=== PATIENT | male | born 1975 | race Caucasian/White ===

== ENCOUNTER 2019-08-28 00:06 | Outpatient (CLI) | payer OTHER, SELFPAY ==
[2019-08-28 18:06] LABS: SARS-CoV-2 RNA PCR Negative
== END 2019-08-28 00:07 | disposition home or self-care (01) ==
LOC: ANHCOVIDDT 00:06
PROVIDERS: PCP Nurse Practitioner Adult Health; Visit Provider Internal Medicine Gastroenterology
DX: Z01.812 Encounter for preprocedural laboratory examination (principal); Z20.828 Contact with and (suspected) exposure to other viral communicable diseases
CPT/HCPCS: 87635; C9803; U0003

== ENCOUNTER 2019-08-30 00:08 | Day surgery (SDC) | payer OTHER, SELFPAY ==
[2019-08-22 10:55] VITALS: BMI 38.7
[2019-08-30 07:08] VITALS: BP 136/75; PULSE 80; RESP 18; TEMP 37.1; O2SAT 100
[2019-08-30] MEDS: LACTATED RINGERS 1,000 ML 150 ML IV CONT (07:11)
--- NOTE | 2019-08-30 07:21 | P.PNAN_ITS ---
Anes - Initial Pre Proc Eval Procedure: Operation Date: 08/30/19 08:30 Proposed Procedures p Colonoscopy - Guille Gonzales MD Date/Time: 08/30/19 07:21 Surgeon: Guille Gonzales MD Pre Op Diagnosis: diverticulitis Patient Data Age: 43 Gender: M Height: 1.73 m Weight: 118.8 kg Last Vital Signs Temp 37.1 C 08/30/19 07:08 Pulse 80 08/30/19 07:08 Resp 18 08/30/19 07:08 BP 136/75 08/30/19 07:08 Pulse Ox 100 08/30/19 07:08 Allergies Allergy/AdvReac Type Severity Reaction Status Date / Time No Known Allergies Allergy Verified 08/22/19 10:54 Home Medications Medication Instructions Recorded Confirmed Type No Home Medications 08/22/19 08/22/19 History Patient hx anesthesia problems: none Family hx anesthesia problems: none [facility] Past Medical History Medical History (Updated 08/30/19 @ 07:21 by Samir Pereira DO) Anxiety Hyperlipidemia Hypertension KENYA (obstructive sleep apnea) Social History Social History (Updated 08/30/19 @ 07:21 by Samir Pereira DO) Alcohol intake: current Alcohol use details: Heavy on weekends Anes - Eval Final PreProcedure Day of Procedure 08/30/19 07:21 Patient weight: obese Heart: regular rate and rhythm Lungs: clear to auscultation and normal air movement Airway: Mallampati scale class II Neurological: alert and oriented Last oral intake: >/= 8 hours ASA classification: III Emergent: no Anesthetic plan: proceed Anesthesia type and monitoring: general GIVS and standard monitoring Informed Consent: The patient's anesthetic plan and its attendant risks and benefits were discussed with the patient/family/POA. Questions were solicited and answers provided to the satisfaction of the patient/family/POA.
--- NOTE | 2019-08-30 07:25 | PM.HPGS ---
History of Present Illness History of Present Illness Consent: Risks, benefits, and alternatives have been discussed and questions answered. Patient agrees to proceed with procedure. Chief complaint: diverticulitis Narrative: Seymour Colvin Jr. is a 43 year old W male Referred for colonoscopy for evaluation of lower abdominal pain. Patient's 1st episode was 1/2 years ago which responded to antibiotic therapy. Patient other episodes 6 weeks ago his had was 10 on a scale of 1-10. Patient again responded antibiotic therapy. He did have a CAT scan another institution I do not have the results but questionable diverticulitis. No family history of inflammatory bowel disease colon polyps or colon cancer. Patient did have some loose stools yellowish in color no blood in the stools. No fever chills or sweats. No recent travel. Patient has a questionable history of sleep apnea. He is on no medications no known allergies. Does smokes 7 cigarettes a day. [facility] Past Medical History Medical History Anxiety Hyperlipidemia Hypertension KENYA (obstructive sleep apnea) Social History Social History Alcohol intake: current Alcohol use details: Heavy on weekends Meds Home Medications and Allergies Home Medications Medication Instructions Recorded Confirmed Type No Home Medications 08/22/19 08/22/19 History Allergies Allergy/AdvReac Type Severity Reaction Status Date / Time No Known Allergies Allergy Verified 08/22/19 10:54 Vital Signs Vital Signs - 24 hr 08/30/19 07:08 Temperature 37.1 C Pulse Rate 80 Respiratory Rate 18 Blood Pressure 136/75 Pulse Oximetry 100 Exam Const: Orientation/consciousness: patient oriented x3 Resp: Auscultation: clear to auscultation bilaterally Cardio: Rate: regular rate Rhythm: regular rhythm Heart sounds: no murmurs GI: GI Palp: Yes Soft to palpation, No Tenderness to palpation present (GI), Yes No hepatosplenomegaly present and No Palpable mass present Auscultation: normal bowel sounds Neuro: General: patient oriented x3 and no focal motor deficits Extrem: General: no pedal edema Assessment and Plan Additional Plan Colonoscopy for evaluation of a lower abdominal pain and questionable diverticulitis
[2019-08-30 09:01] VITALS: BP 131/79; PULSE 80; RESP 13; O2SAT 98
[2019-08-30 09:11] VITALS: BP 124/82; PULSE 80; RESP 19; O2SAT 97
[2019-08-30 09:21] VITALS: BP 130/77; PULSE 73; RESP 16; O2SAT 98
== END 2019-08-30 09:43 | disposition home or self-care (01) ==
PROVIDERS: PCP Nurse Practitioner Adult Health; Visit Provider Internal Medicine Gastroenterology
PROC: 0DJD8ZZ Inspection of Lower Intestinal Tract, Via Natural or Artificial Opening Endoscopic (ICD-10-PCS; CPT 45378; principal; 2019-08-30 08:30)
DX: D12.3 Benign neoplasm of transverse colon (principal); K62.1 Rectal polyp; K64.4 Residual hemorrhoidal skin tags; K57.30 Diverticulosis of large intestine without perforation or abscess without bleeding; I10 Essential (primary) hypertension; E78.5 Hyperlipidemia, unspecified; G47.33 Obstructive sleep apnea (adult) (pediatric); F41.9 Anxiety disorder, unspecified; E66.9 Obesity, unspecified; Z68.39 Body mass index [BMI] 39.0-39.9, adult
CPT/HCPCS: 45380; 88305; J2704; J7120

== ENCOUNTER 2021-02-10 10:23 | Inpatient (IN) | payer BC, SELFPAY ==
[2021-02-10] VITALS (21 sets, daily range): BP systolic 152–173; BP diastolic 75–100; PULSE 76–122; RESP 14–26; TEMP 36.1–37.9; O2SAT 92–98; BMI 40.5
--- NOTE | ~2021-02-10 | US_ITS ---
EXAMINATION: US abdomen limited EXAM DATE: 02/10/2021 17:34 INDICATION: Pancreatitis. TECHNIQUE: Multiple grayscale and Doppler images of the abdomen right upper quadrant were obtained (b y a technologist who performed the scan) and subsequently reviewed. Correlation is made to 02/10/2021 . FINDINGS: Pancreas is difficult to visualize through the bowel gas. Please note that uncomplicated pancreatitis typically does not have any ultrasound findings. There is echogenic liver parenchyma, hepatic steat osis. There are no focal liver lesions identified. There is no evidence of intrahepatic biliary du ct dilation. Portal venous flow was seen in the hepatopedal, normal direction and has normal Doppler waveform. No right-sided hydronephrosis. Common bile duct measures 4 mm, which is normal. The gallbladder wall is normal in thickness, with ex pected amount of distention. No sonographic evidence of pericholecystic fluid. There is no cholelit hiases. Technologist performing exam reports patient did not demonstrate sonographic Roe's sign. Please note that this sign is less reliable in patients who have received pain medication. IMPRESSION: Hepatic steatosis. Reviewed, dictated and finalized at location A. SHELVER IMPRESSION: Hepatic steatosis.
--- NOTE | ~2021-02-10 | CT_ITS ---
EXAMINATION: CT abdomen pelvis w con DATE: 02/10/2021 12:47 INDICATION: Abdominal pain. Fever and leukocytosis. TECHNIQUE: Computed tomography (CT) of the abdomen and pelvis was performed with 100 mL Omnipaque 350 intravenous contrast. Automated exposure control and iterative reconstruction technique were employe d. The dose-length product was 1604.87 mGy-cm. COMPARISON: None. FINDINGS: The visualized portions of the lung bases demonstrate mild atelectasis. No pleural effusion . The heart size is normal. No pericardial effusion. The liver, gallbladder, and spleen are normal. T here is fat stranding around the head of the pancreas, consistent with acute interstitial pancreatiti s. The adrenal glands and kidneys are normal. There are no dilated loops of bowel. There is diverticu losis of the colon without evidence of diverticulitis. There is a small umbilical hernia containing n onobstructed small bowel. The appendix is normal. There is a small left inguinal hernia containing fa t. There is a mildly enlarged lymph node in the foramen of Alee, likely reactive. There is mild ch ronic anterior wedging of multiple thoracic vertebral bodies. There is moderate thoracic spondylosis and mild lumbar spondylosis. IMPRESSION: 1. Acute interstitial pancreatitis. 2. Small umbilical hernia containing nonobstructed small bowel. Reviewed, dictated and finalized at location A. EX [facility]READ [facility]ER
[2021-02-10 11:15] LABS: Add Urine Microscopic? NO; Appearance Urine Clear (Clear); Bilirubin Urine Negative (Negative); Blood Urine Negative (Negative); Color Urine Yellow (Yellow); Glucose Urine UA Negative (Negative); Ketones Urine Negative (Negative); Leukocyte Esterase Ur Negative LEU/UL (Negative); Nitrate Urine Negative (Negative); Protein Urine Negative (Negative); Specific Grav Ur 1.014 (1.001-1.035); Urobilinogen Urine Negative mg/dL (<2.0)
[2021-02-10 11:27] LABS: Basophils Absolute Auto 0.1 K/mm3 (0.0-0.1); Basophils Percent Auto 0.3 % (0.2-1.2); Eosinophils Absolute Auto 0.1 K/mm3 (0-0.3); Eosinophils Percent Auto 0.8 % (0-4.4); Hematocrit 47.5 % (42.0-52.0); Hemoglobin 16.1 g/dL (14.0-18.0); Immature Granulocyte Absolute 0.07 K/mm3 (0.00-0.031); Immature Granulocyte Percent A 0.4 % (0-0.5); Lymphocytes Absolute Auto 1.33 K/mm3 (0.9-3.2); Lymphocytes Percent Auto 7.6 % (18.3-44.2); Mean Corpuscular HGB Conc 33.9 g/dl (32-36); Mean Corpuscular Volume 91.3 fl (80-100); Mean Platelet Volume 9.9 fl (7.4-10.4); Monocytes Absolute Auto 1.6 K/mm3 (0.1-0.6); Monocytes Percent Auto 8.8 % (2.6-8.5); Neutrophils Absolute Auto 14.4 K/mm3 (1.3-6.7); Neutrophils Percent Auto 82.1 % (45.5-73.1); Platelet Count Result 320 k/mm3 (150-375); Red Cell Distribution Width 12.7 % (11.5-14.5); White Blood Count 17.6 K/mm3 (4.5-10.0)
[2021-02-10] MEDS: FAMOTIDINE 20 MG/2 ML VIAL IV PUSH (11:32)
[2021-02-10] MEDS: ONDANSETRON INJ 4 MG/2 ML VIAL IV PUSH (11:32)
[2021-02-10] MEDS: MORPHINE SULFATE (*CRX) 4 MG/ML INJ IV PUSH (11:32)
[2021-02-10] MEDS: SODIUM CHLORIDE 0.9% IV 1,000 ML 999 ML IV CONT (11:33)
[2021-02-10 11:39] LABS: Alanine Aminotransferase 22 U/L (4-50); Albumin Level 4.8 g/dL (3.5-5.1); Alkaline Phosphatase 71 U/L (38-126); Anion Gap 12 mmol/L (8-16); Aspartate Amino Transferase 22 U/L (17-59); Bilirubin,Total 1.1 mg/dL (0.2-1.3); Blood Urea Nitrogen 12 mg/dL (9-20); Calcium 10.1 mg/dL (8.4-10.2); Carbon Dioxide 25 mmol/L (22-30); Chloride 99 mmol/L (98-107); Estimated CRCL calculation 117 ml/min; Estimated Glomerular Filt Rate > 60; Glucose 102 mg/dL (65-110); Lipase 186 U/L (23-300); Potassium 3.8 mmol/L (3.4-5.0); Sodium 136 mmol/L (137-145)
--- NOTE | 2021-02-10 11:58 | ED.ABDPAIN ---
HPI - Abdominal Pain General Chief Complaint: Abdominal Pain <ALMAZ Otero Last Filed: 02/10/21 13:49> Stated Complaint: abd pain <ALMAZ Otero Last Filed: 02/10/21 13:49> Time Seen by Provider: 02/10/21 10:52 <ALMAZ Otero Last Filed: 02/10/21 13:49> Source: patient <ALMAZ Otero Last Filed: 02/10/21 13:49> Mode of arrival: ambulatory <ALMAZ Otero Last Filed: 02/10/21 13:49> Limitations: no limitations <ALMAZ Otero Last Filed: 02/10/21 13:49> History of Present Illness HPI narrative: This is a 45 year old male that presents to the ER for abdominal pain present over the last 4 days. Pain started in the left side of the abdomen, but is now diffuse. Reports the pain is consistently worsening. Associated with nausea and vomiting. His last bowel movement was yesterday. Reports it was black, although he has been taking pepto bismol for his discomfort. Patient noted to be febrile upon arrival to the ED. Denies chest pain, shortness of breath, or dysuria. <ALMAZ Otero Last Filed: 02/10/21 13:49> Related Data Home Medications: Home Medications Medication Instructions Recorded Confirmed No Home Medications 08/22/19 08/22/19 <ALMAZ Otero Last Filed: 02/10/21 13:49> Allergies/Adverse Reactions: Allergies Allergy/AdvReac Type Severity Reaction Status Date / Time No Known Allergies Allergy Verified 08/22/19 10:54 <ALMAZ Otero Last Filed: 02/10/21 13:49> Review of Systems Review of Systems: CONSTITUTIONAL: Denies fever CARDIOVASCULAR: Denies chest pain RESPIRATORY: Denies dyspnea. GASTROINTESTINAL: Reports abdominal pain, nausea, vomiting. Denies diarrhea. GENITOURINARY: Denies dysuria <ALMAZ Otero Last Filed: 02/10/21 13:49> All systems reviewed & are unremarkable except as noted in HPI and below <Juany Rodríguez PA-C - Last Filed: 02/10/21 13:49> PMFSH Past Medical History Medical History: Medical History (Updated 02/10/21 @ 16:55 by Eden Elaine NP) Anxiety Hyperlipidemia Hypertension KENYA (obstructive sleep apnea) The patient denies this but suspects that he may have obstructive sleep apnea <Juany Rodríguez PA-C - Last Filed: 02/10/21 13:49> Surgical History Surgical History: Surgical History (Updated 02/10/21 @ 16:55 by Eden Elaine NP) No pertinent past surgical history <Juany Rodríguez PA-C - Last Filed: 02/10/21 13:49> Family History Family History: Family History (Updated 02/10/21 @ 16:56 by Eden Elaine NP) Mother Heart disease Father Diabetes mellitus <Juany Rodríguez PA-C - Last Filed: 02/10/21 13:49> Social History Social History: Social History Social History: The patient is and lives with his . The is the durable power estate planning attorney for healthcare. 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 The patient states that he does not usually drink during the week but will drink heavily on the weekend. The patient states that he smokes about 2 packs of cigarettes in 1 week. He has 2 children. Code status full code Years smoked: 20 Smoking status: Current every day smoker Alcohol intake: current Drinks per week: 40 Alcohol use details: Heavy on weekends Substance use: never Spiritual care concerns: No <ALMAZ Otero Last Filed: 02/10/21 13:49> Exam Narrative: GENERAL: Uncomfortable, well-nourished, in no acute distress. HEAD: Normocephalic, atraumatic. EYES: EOMI. CHEST: Clear to auscultation. No respiratory distress. No wheezes rales or rhonchi HEART: Regular rate and rhythm. No murmur heard. Normal peripheral pulses. ABDOMEN: Soft, nondistended, normal active bowel sounds. Tender to palpation throughout the abdomen, without guarding EXTREMITIES: Normal range of motion. No
[2021-02-10 12:20] LABS: Lactic Acid Reflex 0.7 mmol/L (0.7-2.1)
[2021-02-10 12:23] LABS: Prothrombin Time 13.1 Seconds (11.1-14.7)
[2021-02-10 12:24] LABS: Partial Thromboplastin Time 33.5 SECONDS (22.3-36.8)
[2021-02-10 12:41] LABS: CRP 14.6 mg/dL (<1.0)
[2021-02-10] MEDS: SODIUM CHLORIDE 0.9% IV 1,000 ML 125 ML IV CONT ×2 (14:08→21:41)
[2021-02-10] MEDS: IBUPROFEN IV 800 MG/200 ML 800 MG/200 ML BAG 400 MG IVPB (14:09)
--- NOTE | 2021-02-10 15:43 | PC.NURSE ---
PT TRANSFERRED TO 3RD FLOOR WITH FLUIDS 125 NS
--- NOTE | 2021-02-10 16:13 | ADMGEN ---
This patient, Seymour Colvin Jr., was admitted to [facility] Surg Room 314-01. Patient/family oriented to hospital policies and general routines including ID bracelet, bed and alarms, visiting hours, pain management, procedures, bathroom and other care routines, personal items, smoking policy, room service/diet, and visiting hours. Information on how to activate the Rapid Response Team has been discussed. Patient/Family are encouraged to report perceived risks to care and to ask questions if they do not understand what they are told or what they should do.
--- NOTE | 2021-02-10 16:48 | PM.IMHP ---
H&P: HPI History of Present Illness Date/Time: 02/10/21 16:48 this is a 45-year-old male patient who started to have abdominal pain over the weekend but was only mild. The patient stated that he drink heavily over the weekend and could not quantify the amount of alcohol that he drinks this weekend. The patient stated that on Monday he was not feeling very well but he still continues to drink alcohol on the day. Over the next few days the patient continued to have increased abdominal pain. The patient stated that he just has not ate much of anything over the last couple days and that seemed to help. The patient stated that eating food made it worse so he stopped eating. The patient stated that he was able to keep some water down. He had no fever chills. The patient stated that he just felt like he was distended and bloated and needed to have bowel movement. The patient stated that he felt like he needed to take a laxative get that far. The patient stated that he has never had pancreatitis in the past and he still has a gallbladder. The patient has been taking Pepto-Bismol for the discomfort but it did seem to help much. He was given Motrin in the emergency room any stated that helped some. The patient was started on IV fluids, morphine, Pepcid, Zofran, ibuprofen, and Tylenol. The patient's abdominal pelvis CT was read as acute interstitial pancreatitis. Small umbilical hernia containing nonobstructed small bowel. White count was noted to be 17.6. Liver enzymes are within normal limits. However C reactive protein is 14.6. The patient stated that he does have high cholesterol but did not take the medication because it did make him feel very well. He has not had his cholesterol checked since then. The patient is being admitted for observation status on the date of service of 02/10/2021. Chief Complaint: Abdominal pain Review of Systems Review of Systems: All systems reviewed & are unremarkable except as noted in HPI and below Constitutional: Constitutional: Reports as per HPI and Reports no additional constitutional complaints Eyes: Eyes: Reports as per HPI and Reports no additional eye complaints ENT: Reports system reviewed and no additional complaints, except as documented and Reports Normal hearing present Cardiovascular: Cardiovascular: Reports no additional cardiovascular complaints Respiratory: Respiratory: Reports no additional respiratory complaints and Reports no additional respiratory complaints Gastrointestinal: Gastrointestinal: Reports as per HPI and Reports no additional gastrointestinal complaints Musculoskeletal: Musculoskeletal: Reports no additional musculoskeletal complaints Integumentary/Breasts: Skin/Breast: Reports system reviewed and no additional complaints, except as docu and Reports as per HPI Neurologic: Reports system reviewed and no additional complaints, except as documented, Reports as per HPI and Reports Normal hearing present Psychiatric: Psychiatric: Reports no additional psychiatric complaints and Reports as per HPI Endocrine: Endocrine: Reports no additional endocrine complaints Hematologic/Lymphatic: Hematologic/Lymphatic: Reports no additional hematologic/lymphatic complaints Allergic/Immunologic: Allergic/Immunologic: Reports no additional allergic/immunologic complaints [facility] Past Medical History Medical History (Updated 02/10/21 @ 17:07 by Eden Elaine NP) Anxiety Hyperlipidemia Hypertension KENYA (obstructive sleep apnea) The patient denies this but suspects that he may have obstructive sleep apnea Surgical History Surgical History (Updated 02/10/21 @ 16:55 by Eden Elaine NP) No pertinent past surgical history Family History Family History (Updated 02/10/21 @ 16:56 by Eden Elaine NP) Mother Heart disease Father Diabetes mellitus Social History Social History (Updated 02/10/21 @ 16:57 by Eden Elaine NP) Social History: The patient is
[2021-02-10] MEDS: HYDROmorphone HCL INJ (*CRX) 1 MG/ML SYR 0.5 MG IV PUSH ×2 (17:08→23:37)
[2021-02-10] MEDS: KETOROLAC 15 MG/ML VIAL (*BKC) IV PUSH (18:54)
[2021-02-10] MEDS: CLOBETASOL PROPIONATE 0.05% CREAM 30 GM 1 APPLIC TOPICAL (21:39)
[2021-02-11] MEDS: KETOROLAC 15 MG/ML VIAL (*BKC) IV PUSH ×2 (05:07→21:12)
[2021-02-11] MEDS: SODIUM CHLORIDE 0.9% IV 1,000 ML 125 ML IV CONT (05:10)
[2021-02-11 05:24] VITALS: BP 170/88; PULSE 110; RESP 18; TEMP 36.3; O2SAT 94
[2021-02-11 07:00] LABS: Basophils Percent Auto 0.3 % (0.2-1.2); Eosinophils Absolute Auto 0.3 K/mm3 (0-0.3); Eosinophils Percent Auto 1.8 % (0-4.4); Hematocrit 43.1 % (42.0-52.0); Hemoglobin 14.1 g/dL (14.0-18.0); Immature Granulocyte Absolute 0.07 K/mm3 (0.00-0.031); Immature Granulocyte Percent A 0.5 % (0-0.5); Lymphocytes Absolute Auto 1.32 K/mm3 (0.9-3.2); Lymphocytes Percent Auto 9.2 % (18.3-44.2); Mean Corpuscular HGB Conc 32.7 g/dl (32-36); Mean Corpuscular Hemoglobin 30.9 pg (26-34); Mean Corpuscular Volume 94.3 fl (80-100); Mean Platelet Volume 9.6 fl (7.4-10.4); Monocytes Absolute Auto 1.3 K/mm3 (0.1-0.6); Neutrophils Absolute Auto 11.3 K/mm3 (1.3-6.7); Neutrophils Percent Auto 79.2 % (45.5-73.1); Platelet Count Result 266 k/mm3 (150-375); Red Blood Count 4.57 M/mm3 (4.6-6.20); Red Cell Distribution Width 12.7 % (11.5-14.5); White Blood Count 14.3 K/mm3 (4.5-10.0)
[2021-02-11 07:06] LABS: Alanine Aminotransferase 18 U/L (4-50); Albumin Level 3.8 g/dL (3.5-5.1); Alkaline Phosphatase 60 U/L (38-126); Anion Gap 8 mmol/L (8-16); Aspartate Amino Transferase 20 U/L (17-59); Bilirubin,Total 1.1 mg/dL (0.2-1.3); Blood Urea Nitrogen 12 mg/dL (9-20); Calcium 8.8 mg/dL (8.4-10.2); Carbon Dioxide 25 mmol/L (22-30); Chloride 104 mmol/L (98-107); Cholesterol 221 mg/dL (0-200); Estimated CRCL calculation 131 ml/min; Estimated Glomerular Filt Rate > 60; Glucose 98 mg/dL (65-110); HDL Direct 35 mg/dL; Lactate Dehydrogenase 342 U/L (313-618); Lipase 137 U/L (23-300); Potassium 4.3 mmol/L (3.4-5.0); Sodium 137 mmol/L (137-145); Triglycerides 128 mg/dL (<150)
[2021-02-11 07:18] LABS: LDL Cholesterol Direct 163 mg/dL
[2021-02-11] MEDS: CLOBETASOL PROPIONATE 0.05% CREAM 30 GM 1 APPLIC TOPICAL ×2 (09:59→21:11)
[2021-02-11] MEDS: THIAMINE HCL 200 MG/2 ML VIAL 100 MG IV PUSH (09:59)
[2021-02-11] MEDS: FOLIC ACID 1 MG/0.2 ML INJ IV PUSH (10:50)
[2021-02-11 11:57] LABS: Add Urine Microscopic? NO; Appearance Urine Clear (Clear); Bilirubin Urine Negative (Negative); Blood Urine Negative (Negative); Color Urine Yellow (Yellow); Glucose Urine UA Negative (Negative); Ketones Urine Negative (Negative); Leukocyte Esterase Ur Negative LEU/UL (Negative); Nitrate Urine Negative (Negative); Protein Urine Negative (Negative); Specific Grav Ur 1.014 (1.001-1.035); Urobilinogen Urine Negative mg/dL (<2.0)
--- NOTE | 2021-02-11 13:06 | PM.IMPN ---
Progress Note: A&P Assessment and Plan (1) Acute pancreatitis: Qualifiers: Acute pancreatitis complication: no infection or necrosis Pancreatitis type: unspecified pancreatitis type Qualified Code(s): K85.90 - Acute pancreatitis without necrosis or infection, unspecified Code(s): K85.90 - Acute pancreatitis without necrosis or infection, unspecified Status: Acute Assessment and Plan: The patient is a heavy drinker on the weekends which could be the cause of his pancreatitis. Patient is on clear liquids and tolerating water without any issues. For lunch she is going to try to eat some broth and Jell-O and see how his abdominal pain feels. He has not received any pain meds since earlier this morning. Denies any nausea or symptoms. Will continue with some IV fluids at this time. If he tolerates clears then will potentially discontinue. PPI Q12hrs with admission Continue pain medications as needed. Abd US showed Hepatic steatosis. His lipase was in normal limits at the time of admission and repeat Lipase this morning was normal. Continue to monitor lipase. (2) Hypertension: Code(s): I10 - Essential (primary) hypertension Status: Chronic Assessment and Plan: Patient stated that he had been on medications at 1 time for his blood pressure and that has not been taking it. BP elevated this morning 170 systolic. Will continue monitoring. Discontinue IV fluids if tolerating Clear Liquid. If still elevated consider starting HTN medication. Do p.r.n. hydralazine. (3) Anxiety: Code(s): F41.9 - Anxiety disorder, unspecified Status: Chronic Assessment and Plan: P.r.n. Ativan. (4) Hyperlipidemia: Code(s): E78.5 - Hyperlipidemia, unspecified Status: Chronic Assessment and Plan: Check lipid profile. The patient stated that he had been on a statin at 1 time and was not able to tolerated. (5) Alcoholism: Code(s): F10.20 - Alcohol dependence, uncomplicated Status: Acute Assessment and Plan: Continue to monitor CIWA scores. P.r.n. Ativan. Folic acid and thiamin have been added as well. (6) Tobacco abuse: Code(s): Z72.0 - Tobacco use Status: Acute Assessment and Plan: The patient states that he smokes about 2 packs a 1 week. Additional Plan The patient suspects that he has sleep apnea so I did order an apnea link. -Apnea link showed AHI elevated at 8.2, RI 12.6, VERONA 14.1 and suspected pathological breathing disorder. Will need further evaluation and testing with PCP after discharge Time Spent With Patient Time with patient: 25 - 35 minutes Subjective Date/time seen: 02/11/21 13:06 Interval history: Date of Service 02/11/21: Patient reports feeling well right now. He has only been drinking water, and has not advanced his diet at all. He is going to try some broth and Jell-O for lunch and see how his stomach tolerates that. Otherwise he reports his urine being ?dark brown? in color. This is something that is new from arrival in he questioned if it was from the pain medications he had been receiving. He does report lower abdominal discomfort on bilateral sides. Denies any frequent urination, dysuria, flank pain, or any other symptoms at this time. He denies any chest pain, shortness of breath, cough, nausea, vomiting, leg swelling, calf pain, or any other symptoms at this time. Review of Systems Review of Systems: All systems reviewed & are unremarkable except as noted in HPI and below Exam Narrative: General: 45-year-old man sitting up in the chair talking on the phone. Appears comfortable. In no acute distress. Skin: No jaundice or cyanosis. Good skin turgor. Neck: Full range of motion. Supple. Respiratory: Lungs are clear to auscultation bilaterally. No bony chest wall tenderness. Cardiovascular: The heart has a regular rate and rhythm without murmur. Lower extremities: No lower e
[2021-02-11 14:00] VITALS: BP 155/88; PULSE 90; RESP 16; TEMP 36.6; O2SAT 97
[2021-02-11] MEDS: SODIUM CHLORIDE 0.9% IV 1,000 ML 70 ML IV CONT (14:21)
[2021-02-11] MEDS: PANTOPRAZOLE 40 MG TABLET PO (21:11)
[2021-02-11 21:45] VITALS: O2SAT 93
[2021-02-11 21:51] VITALS: BP 164/91; PULSE 92; RESP 18; TEMP 36.1; O2SAT 98
[2021-02-12 00:38] VITALS: BP 145/84; PULSE 79; RESP 18; TEMP 35.7; O2SAT 95
[2021-02-12 06:00] VITALS: BP 150/90; PULSE 84; RESP 18; TEMP 36; O2SAT 97
[2021-02-12 06:23] LABS: Basophils Percent Auto 0.4 % (0.2-1.2); Eosinophils Absolute Auto 0.4 K/mm3 (0-0.3); Eosinophils Percent Auto 4.1 % (0-4.4); Hematocrit 41.7 % (42.0-52.0); Hemoglobin 13.9 g/dL (14.0-18.0); Immature Granulocyte Absolute 0.05 K/mm3 (0.00-0.031); Immature Granulocyte Percent A 0.5 % (0-0.5); Lymphocytes Absolute Auto 1.72 K/mm3 (0.9-3.2); Lymphocytes Percent Auto 17.3 % (18.3-44.2); Mean Corpuscular HGB Conc 33.3 g/dl (32-36); Mean Corpuscular Hemoglobin 30.6 pg (26-34); Mean Corpuscular Volume 91.9 fl (80-100); Mean Platelet Volume 9.6 fl (7.4-10.4); Monocytes Absolute Auto 0.9 K/mm3 (0.1-0.6); Monocytes Percent Auto 9.2 % (2.6-8.5); Neutrophils Absolute Auto 6.8 K/mm3 (1.3-6.7); Neutrophils Percent Auto 68.5 % (45.5-73.1); Platelet Count Result 293 k/mm3 (150-375); Red Blood Count 4.54 M/mm3 (4.6-6.20); Red Cell Distribution Width 12.1 % (11.5-14.5)
[2021-02-12 06:34] LABS: Alanine Aminotransferase 37 U/L (4-50); Albumin Level 4.1 g/dL (3.5-5.1); Alkaline Phosphatase 60 U/L (38-126); Anion Gap 7 mmol/L (8-16); Aspartate Amino Transferase 32 U/L (17-59); Bilirubin,Total 0.7 mg/dL (0.2-1.3); Blood Urea Nitrogen 11 mg/dL (9-20); Calcium 9.2 mg/dL (8.4-10.2); Carbon Dioxide 29 mmol/L (22-30); Chloride 103 mmol/L (98-107); Estimated CRCL calculation 118 ml/min; Estimated Glomerular Filt Rate > 60; Glucose 93 mg/dL (65-110); Lipase 57 U/L (23-300); Potassium 3.9 mmol/L (3.4-5.0); Sodium 139 mmol/L (137-145)
[2021-02-12 08:00] VITALS: PULSE 70
[2021-02-12] MEDS: PANTOPRAZOLE 40 MG TABLET PO (08:17)
[2021-02-12] MEDS: THIAMINE HCL 200 MG/2 ML VIAL 100 MG IV PUSH (08:17)
[2021-02-12] MEDS: FOLIC ACID 1 MG/0.2 ML INJ IV PUSH (08:18)
[2021-02-12] MEDS: CLOBETASOL PROPIONATE 0.05% CREAM 30 GM 1 APPLIC TOPICAL (08:18)
[2021-02-12 10:10] VITALS: PULSE 84; RESP 18; O2SAT 97
--- NOTE | 2021-02-12 10:42 | PM.DS ---
DS: Admitting Diagnosis Discharge Date 02/12/21 Admitting Diagnosis Abd pain DS: Discharge Diagnosis Discharge Diagnosis (1) Acute pancreatitis: Qualifiers: Acute pancreatitis complication: no infection or necrosis Pancreatitis type: unspecified pancreatitis type Qualified Code(s): K85.90 - Acute pancreatitis without necrosis or infection, unspecified Code(s): K85.90 - Acute pancreatitis without necrosis or infection, unspecified Status: Acute Assessment and Plan: Patient is a 45-year-old man with a history of hyperlipidemia, who presented to the emergency room with abdominal pain over the last few days. He had some alcohol over the weekend which made his abdominal pain worse. He came to the ER after not being able to eat the last few days and continued abdominal pain. Initial vitals showed elevated blood pressure 152/98, tachycardic heart rate 122, afebrile, normal oxygenation on room air. Initial labs showed leukocytosis at 17,000, elevated neutrophils at 82%, normal coag panel, normal CMP, normal lipase. Elevated CRP at 14.6. CT abdomen showed acute interstitial pancreatitis. He was admitted to the hospital and placed on clear liquid diet with IV fluid hydration for pancreatitis. Given IV pain control. Patient feeling better at this time. Slowly advance his diet from clears, to fulls, to a low-fat diet. He tolerated a low-fat diet without any issues. He has not had pain medications all day. Still has minimal pain but tolerable. Told him to continue low-fat diet for 2 weeks. Follow-up with primary care in 1 week. Told him to refrain from any alcohol use. Given warnings of continuing alcohol use given new pancreatitis. Return to ER warnings given. The patient understands agrees the plan all questions answered. Patient tells me that he is mostly on a cholesterol medication but he does not take that anymore. While he was here we checked a cholesterol panel which showed elevated total cholesterol at 221, elevated LDL at 163 with goal of less than 130. Also Abd US showed Hepatic Steatosis. I will prescribe him atorvastatin and have him follow-up with primary care provider in 1 week for further evaluation after discharge. Patient also concerned with his elevated blood pressures which been 150/90 in the hospital. I told the patient it is not uncommon for people's blood pressure to be elevated during admission. I recommend him checking his blood pressure at home twice a day and writing it down and following up with his doctor in 1 week for further evaluation and monitoring. If his blood pressure at home is still elevated then he will need to be started on blood pressure medication. I told him to continue working with diet changes, weight loss, exercise and hopefully he will need blood pressure medications. (2) Hypertension: Code(s): I10 - Essential (primary) hypertension Status: Chronic Assessment and Plan: (3) Anxiety: Code(s): F41.9 - Anxiety disorder, unspecified Status: Chronic Assessment and Plan: (4) Hyperlipidemia: Code(s): E78.5 - Hyperlipidemia, unspecified Status: Chronic Assessment and Plan: (5) Alcoholism: Code(s): F10.20 - Alcohol dependence, uncomplicated Status: Acute Assessment and Plan: (6) Tobacco abuse: Code(s): Z72.0 - Tobacco use Status: Acute Assessment and Plan: (7) Hepatic steatosis: Code(s): K76.0 - Fatty (change of) liver, not elsewhere classified Status: Acute DS: Summary Hospital Course Hospital Course: See above Status at Discharge Cognitive/behavioral status at discharge: Stable, improved. Time Spent with Patient Time attestation: Total time spent providing and/or coordinating discharge services: 38 Time spent: Greater than 30 minutes Exam Narrative: General: 45-year-old man walking back to his bed. Appears comfortable. In
== END 2021-02-12 12:31 | disposition home or self-care (01) | DRG 440 ==
LOC: ANHED 13:45 → ANH3MEDSUR 13:49
PROVIDERS: Nurse Practitioner; Physician Assistant; Admitting Provider Internal Medicine; Emergency Provider Emergency Medicine; PCP Nurse Practitioner Adult Health; Visit Provider Family Medicine
DX: K85.90 Acute pancreatitis without necrosis or infection, unspecified (principal); K76.0 Fatty (change of) liver, not elsewhere classified; I10 Essential (primary) hypertension; E78.5 Hyperlipidemia, unspecified; F41.9 Anxiety disorder, unspecified; F10.20 Alcohol dependence, uncomplicated; F17.210 Nicotine dependence, cigarettes, uncomplicated; Z23 Encounter for immunization
CPT/HCPCS: 36415; 74177; 76705; 80053; 80061; 81003; 83605; 83615; 83690; 83735; 84443; 85025; 85610; 85730; 86140; 87040; 90471; 90653; 94762; 96361; 96365; 96375; 99285; A9270; G0008; G0378; J0131; J1170; J1741; J1885; J2270; J2405; J3411; J7030; Q9967

== ENCOUNTER 2021-04-02 15:18 | Emergency (ER) | payer BC, SELFPAY ==
--- NOTE | 2021-04-02 15:21 | ED.UPPEXIN ---
HPI - Extremity Injury (Upper) General Chief Complaint: Extremity Injury, Upper Stated Complaint: Finger pain Time Seen by Provider: 04/02/21 15:21 Source: patient and RN notes reviewed History of Present Illness HPI narrative: Patient is a 45-year-old male who presents the urgent care with complaints of swelling and pain to the fingernail of the right pinky. Patient states that it has been there for approximately 2 weeks. Patient states that he initially drained on his own with a pocket knife and then it started to come back. Patient states after that he has been using. Which has not seemed to help. Patient denies of any fever, chills, nausea, vomiting. No other acute complaints. Denies of any known injury to the finger. No acute distress noted. Patient read the plan of care. Some parts of this dictation were generated by voice recognition software and may contain typographical and/or grammatical inaccuracies. Related Data Home Medications Medication Instructions Recorded Confirmed tadalafil mg 04/02/21 Allergies Allergy/AdvReac Type Severity Reaction Status Date / Time No Known Allergies Allergy Verified 04/02/21 15:26 Review of Systems Review of Systems: CONSTITUTIONAL: Denies fever, chills, or sweats. EYES: Denies visual changes, redness, or discharge. ENT: Denies rhinorrhea, congestion, sore throat, or otalgia. CARDIOVASCULAR: Denies chest pain, palpitations, or edema. RESPIRATORY: Denies cough or dyspnea. GASTROINTESTINAL: Denies abdominal pain, nausea, vomiting, or diarrhea. GENITOURINARY: Denies dysuria or hematuria. SKIN: Reports of pain and swelling surrounding the nailbed of the right pinky finger MUSCULOSKELETAL: Denies back pain, joint pain, or myalgia. NEUROLOGIC: Denies headache, numbness, or weakness. All other systems reviewed are negative, except as documented in HPI. [facility] Past Medical History Medical History (Updated 04/02/21 @ 15:47 by JONATAN Mahan) Anxiety Hyperlipidemia Hypertension KENYA (obstructive sleep apnea) The patient denies this but suspects that he may have obstructive sleep apnea Surgical History Surgical History (Updated 02/10/21 @ 16:55 by Eden Elaine NP) No pertinent past surgical history Family History Family History (Updated 02/10/21 @ 16:56 by Eden Elaine NP) Mother Heart disease Father Diabetes mellitus Social History Social History (Updated 02/10/21 @ 16:57 by Eden Elaine NP) Social History: The patient is and lives with his . The is the durable power consumer attorney for healthcare. 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 The patient states that he does not usually drink during the week but will drink heavily on the weekend. The patient states that he smokes about 2 packs of cigarettes in 1 week. He has 2 children. Code status full code Years smoked: 20 Smoking status: Current every day smoker Alcohol intake: current Drinks per week: 40 Alcohol use details: Heavy on weekends Substance use: never Spiritual care concerns: No Comments At the time of my signature, I reviewed and agree with the nursing past medical, surgical, social, and family history. There is no relevant family history pertinent to the patient complaint. Exam Narrative: GENERAL: This is a well-nourished, well-developed patient, in no apparent distress. HEAD: normocephalic, atraumatic. EYES: PERRL. Sclera clear/white. Vision is grossly intact. EARS: External ears normal, auditory canals clear and without drainage, TMs normal without perforation. Hearing grossly intact. NOSE: External nose normal with no obvious nasal discharge, nares without redness, no rhinorrhea. THROAT: Mucous membranes moist NECK: Neck supple CARDIOVASCULAR: Regular rate and rhythm without murmurs, gallops, or rubs. RESPIRATORY: Clear to auscultation. Breath sounds equal bilaterally. No wheezes, rales, or rhonchi. SKIN: Large paronychia surro
[2021-04-02 15:26] VITALS: BP 170/91; PULSE 92; RESP 16; TEMP 36.8; O2SAT 98
== END 2021-04-02 16:06 | disposition home or self-care (01) ==
PROVIDERS: Emergency Provider Nurse Practitioner Family; PCP Nurse Practitioner Adult Health
DX: L03.011 Cellulitis of right finger (principal); I10 Essential (primary) hypertension; E78.5 Hyperlipidemia, unspecified; F17.210 Nicotine dependence, cigarettes, uncomplicated
CPT/HCPCS: 10060; 99213; G0463

== ENCOUNTER 2021-09-03 10:34 | Emergency (ER) | payer BC, SELFPAY ==
[2021-09-03 10:44] VITALS: BP 140/79; PULSE 88; RESP 15; TEMP 36.1; O2SAT 99
[2021-09-03 10:47] VITALS: BP 140/79; PULSE 88; RESP 15; TEMP 36.1; O2SAT 99
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
== END 2021-09-03 11:06 | disposition home or self-care (01) ==
PROVIDERS: Emergency Provider Nurse Practitioner Family; PCP Nurse Practitioner Adult Health
DX: S76.312A Strain of muscle, fascia and tendon of the posterior muscle group at thigh level, left thigh, initial encounter (principal); X50.0XXA Overexertion from strenuous movement or load, initial encounter; Y93.83 Activity, rough housing and horseplay; E78.5 Hyperlipidemia, unspecified; I10 Essential (primary) hypertension; G47.33 Obstructive sleep apnea (adult) (pediatric)
CPT/HCPCS: 99212; G0463

== ENCOUNTER 2025-03-01 15:38 | Emergency (ER) | payer BC, SELFPAY ==
[2025-03-01 15:44] VITALS: BP 158/92; PULSE 85; RESP 20; TEMP 36.7; O2SAT 99
--- NOTE | 2025-03-01 15:45 | ED_ITS ---
HPI - Male Genitourinary General Chief complaint: Urogenital-Male Stated complaint: urinary irritation Patient presents to the [facility] with complaints of more frequent nighttime urination, occasional burning at the end of urination, pain around the base of his penis after intercourse /ejaculation, also noted no semen after ejaculation noted. Patient reports he is in a monogamous relationship and denies any significant concerns for STDs but noted he has never had these symptoms previously. No history of urinary tract infection, epididymitis or prostatitis. Does report his father had a history of prostate cancer in his 50s has been checked by previous primary care physician with PSA and manual prostate exam, Currently does not have primary care physician. Denies fever, chills, body aches, lower back pain, flank pain, testicular pain, testicular swelling, blood in urine or blood in ejaculate. Related Data Home Medications ?Medication ?Instructions ?Recorded ?Confirmed ?Last Taken ?Type tadalafil 20 mg tablet 20 mg PO PRN PRN Erectile 09/03/21 Unknown History Dysfunction Allergies Allergy/AdvReac Type Severity Reaction Status Date / Time No Known Allergies Allergy Verified 03/01/25 15:49 Review of Systems Constitutional: Constitutional: Reports as per HPI, Denies chills, Denies fati hi, Denies fever(s) and Denies weakness Eyes: Eyes: Reports no additional eye complaints ENT: Reports system reviewed and no additional complaints, except as documented Cardiovascular: Cardiovascular: Reports no additional cardiovascular complaints Respiratory: Respiratory: Reports no additional respiratory complaints Gastrointestinal: Gastrointestinal: Reports as per HPI, Denies abdominal pain, Denies bloating, Denies diarrhea, Denies nausea and Denies vomiting Genitourinary: Genitourinary: Reports as per HPI, Denies hematuria, Denies oliguria, Denies genital lesions, Reports dysuria (minimal at the end of urination ), Denies penile discharge, Denies testicular pain, Reports urinary frequency (worse at night ) and Denies urinary incontinence Comments: no semen in the ejaculate, pain to base of penis after ejaculation. Musculoskeletal: Musculoskeletal: Reports as per HPI, Denies back pain and Denies myalgias Integumentary/Breasts: Skin/Breast: Reports as per HPI and Denies rash Neurologic: Reports as per HPI, Denies headache(s), Denies numbness and Denies weakness Psychiatric: Psychiatric: Reports no additional psychiatric complaints Endocrine: Endocrine: Reports no additional endocrine complaints Hematologic/Lymphatic: Hematologic/Lymphatic: Reports no additional hematologic/lymphatic complaints Allergic/Immunologic: Allergic/Immunologic: Reports no additional allergic/immunologic complaints PMFSH Past Medical History Medical History (Updated 03/01/25 @ 16:12 by Simran Tobin APRN, TRANSMISSION LINE ENGINEER-C) Anxiety KENYA (obstructive sleep apnea) The patient denies this but suspects that he may have obstructive sleep apnea Hyperlipidemia Hypertension Surgical History Surgical History (Updated 02/10/21 @ 16:55 by Eden Elaine APRN) No pertinent past surgical history Family History Family History (Updated 02/10/21 @ 16:56 by Eden Elaine APRN) Mother Heart disease Father Diabetes mellitus Social History Social History (Updated 02/10/21 @ 16:57 by Eden Elaine APRN) Social History: The patient is and lives with his . The is the durable power sampler and test preparer for healthcare. 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 The patient states that he does not usually drink during the week but will drink heavily on the weekend. The patient states that he smokes about 2 packs of cigarettes in 1 week. He has 2 children. Code status full code Years smoked: 20 Smoking status: Current every day smoker Alcohol intake: current Drinks per week: 40 Alcohol use details: Heavy on weekends Substance use: never Spiritual care concerns: No Exam Const: General: healthy appearing and no acute distress Nutritional Appearance: well nourished Limitations: no limitations Resp: Effort & Inspection: normal respiratory effort Cardio: Rate: regular rate GI: Inspection: non-distended GI Palp: Yes Soft to palpation, No Tenderness to palpation present (GI), No Guarding due to palpation present (GI), No Rigid due to palpation and No Rebound tenderness present Auscultation: normal bowel sounds : General: Yes bladder normal to palpation and Yes no CVA tenderness Back/Spine/Pelvis: Back: no CVA tenderness Skin: General skin exam: normal color Rashes: no rashes Wounds: no wounds Neuro: General: patient oriented x3 Speech: normal speech Gait exam (Neuro): Normal gait present Psych: Mental Status: mental status grossly normal Affect: normal affect Attitude: cooperative Course Course Level of Care: Express Care Visit Vital Signs Vital signs: Vital Signs Temperature 98.0 F 03/01/25 15:44 Pulse Rate 85 03/01/25 15:44 Respiratory Rate 20 03/01/25 15:44 Blood Pressure 158/92 H 03/01/25 15:44 Pulse Oximetry 99 03/01/25 15:44 Oxygen Delivery Room Air 03/01/25 15:44 Temperature 98.0 F 03/01/25 15:44 Pulse Rate 85 03/01/25 15:44 Respiratory Rate 20 03/01/25 15:44 Blood Pressure 158/92 H 03/01/25 15:44 Pulse Oximetry 99 03/01/25 15:44 Oxygen Delivery Room Air 03/01/25 15:44 MDM - Male Genitourinary MDM Narrative Medical decision making narrative: UA negative for infection. Will send culture and STD testing. Given symptoms likely epididymitis versus prostatitis. Will place patient on doxycycline and given referral to primary care physician and Urology The patient was evaluated by myself in the [facility] care. History is obtained from patient who is an independent historian and physical exam was performed. Available medical records were reviewed at this time. Exam findings show no acute concerns or changes; patient is non-toxic appearing and is in no distress. Patient is appropriate for outpatient treatment and follow-up. I have evaluated and discussed social determinants of health with the patient that could potentially impact subsequent diagnosis and treatment plans. Differential diagnosis and treatment plan were discussed with the patient. Patient agrees with discussion and after shared medical decision making agrees with plan of care. All questions were answered to the patient's satisfaction. Differential Diagnosis Differential diagnosis: Likely urinary tract infection, urethritis, epididymit is, prostatitis and acute retention of urine Medical Records Attestation: I reviewed the patient's medical records. Lab Data Attestation: I reviewed the patient's lab results. Labs: Lab Results 03/01/25 Range/Units 15:50 POC Urine Color Yellow POC Urine Clarity Clear POC Urine pH 5.5 POC Ur Specif [place] 1.010 POC Urine Protein Negative (Negative) POC Ur Glucose (UA) Negative (Negative) POC Urine Ketones Negative (Negative) POC Urine Blood Negative (Negative) POC Urine Nitrite Negative (Negative) POC Urine Bilirubin Negative (Negative) POC Urine Urobilinogen 0.2 POC U Leukocyte Esteras Negative (Negative) Discharge Plan Discharge Clinical Impression: Prostatitis Patient Disposition: Home Condition: Stable Instructions: Antibiotic Form, Epididymo-Orchitis (ED), Prostatitis (ED) Additional Instructions: We tested your urine for UTI in clinic today and this is negative for infection we will send off a culture to ensure there is no infection we have also tested for STDs chlamydia, gonorrhea, Trichomonas. If these are negative you will not be informed of results only positive results that need treatment you should follow-up with primary care physician I have given you the name to a previous primary care physician with now located in the [facility]. Also recommended given your family history would be beneficial to follow-up with urologist. Have included the phone number to our urology office in [place]. Patient Language: Telugu Prescriptions: New doxycycline monohydrate 100 mg capsule 100 mg PO BID Qty: 28 0RF No Action tadalafil 20 mg tablet 20 mg PO PRN PRN (Reason: Erectile Dysfunction) Patient Comments: PT STATES NOT TAKING 02/2025 atorvastatin 40 mg tablet 40 mg PO DAILY Qty: 30 0RF Patient Comments: PT STATES NOT TAKING 02/2025 Follow-up/Referrals: Simran Tobin APRN, TRANSMISSION LINE ENGINEER-C [Emergency Provider, Family Practice] PHYSICIAN,[employer] [Primary Care Provider, Internal Medicine] Michel Walters MD [Physician, Urology] Linnette Bruce APRN [Advanced Practice Nurse, Family Practice] Time of Disposition: 16:12
[2025-03-01 15:59] LABS: EDUAAPPEAR Clear; EDUABILI Negative (Negative); EDUABLOOD Negative (Negative); EDUACOLOR1 Yellow; EDUAGLUCOSE Negative (Negative); EDUAKETONE Negative (Negative); EDUALEUKO Negative (Negative); EDUANITRATE Negative (Negative); EDUAPH 5.5; EDUAPROTEIN Negative (Negative); EDUASPGRAVITY 1.010; EDUAUROBILI 0.2
[2025-03-01 19:31] LABS: Trichomonas Vag PCR NOT DETECTED (NOT DETECTE)
== END 2025-03-01 16:20 | disposition home or self-care (01) ==
PROVIDERS: Emergency Provider Nurse Practitioner Family
DX: N41.9 Inflammatory disease of prostate, unspecified (principal); Z11.3 Encounter for screening for infections with a predominantly sexual mode of transmission; F17.210 Nicotine dependence, cigarettes, uncomplicated; I10 Essential (primary) hypertension; E78.5 Hyperlipidemia, unspecified; Z80.42 Family history of malignant neoplasm of prostate
CPT/HCPCS: 81003; 87086; 87491; 87591; 87661; 99213; G0463